=== PATIENT | male | born 1975 | race Caucasian/White ===

== ENCOUNTER 2017-10-04 02:19 | Emergency (ER) | payer OTHER ==
[~2017-10-04] VITALS: Ht 177.8 cm; Wt 81.6 kg
[2017-10-04] MEDS ORDERED: DOLOGESIC 500-1 EACH PO (07:00)
[2017-10-04] MEDS ORDERED: CEFUROXIME500 MG PO (07:00)
== END 2017-10-04 14:45 | disposition home or self-care (01) ==
LOC: ER 02:19
DX: S00.83XA Contusion of other part of head, initial encounter (principal); W22.8XXA Striking against or struck by other objects, initial encounter; Y93.89 Activity, other specified; Y92.098 Other place in other non-institutional residence as the place of occurrence of the external cause; Y99.8 Other external cause status